=== PATIENT | female | born 2005 | race Two or more races ===

== ENCOUNTER 2024-12-22 15:15 | Emergency (ER) | payer MEDICAID, SELFPAY ==
[2024-12-22 15:22] VITALS: BP 117/79; PULSE 63; RESP 18; TEMP 37.6; O2SAT 97; BMI 21.9
--- NOTE | 2024-12-22 15:38 | EDNOTE_ITS ---
<Statement entered by Bryanna Kwong MD - 12/23/24 15:24> As co-signing physician, I was present and available for consult prn. I concur with the plan and care as documented by the midlevel provider. ED General RME/HPI General Chief complaint: General Adult/Misc Complain Stated complaint: left lower lip drooping per pt. Time Seen by Provider: 12/22/24 15:33 Arrival date/time: 12/22/24 15:15 CC: Tugging or pulling sensation in the left side of the cheek just lateral to the mouth HPI onset 3 days ago patient is concerned because this is the symptoms the patient had 1 year ago when she overdosed on antidepressants and pain medication with alcohol. Patient denies overdosing on anything she is taking her antidepressants as prescribed, denies alcohol smoking or street drugs. She is awake alert and oriented last menstrual cycle was 30 days ago. Patient has no other complaints including memory loss weakness in the left side nausea vomiting or diarrhea. Related Data Home Medications ?Medication ?Instructions ?Recorded ?Confirmed escitalopram oxalate 20 mg tablet 20 mg PO QDAY 09/19/23 (Lexapro) Allergies Allergy/AdvReac Type Severity Reaction Status Date / Time No Known Allergies Allergy Verified 12/22/24 15:20 Review of Systems Review of Systems Narrative Review of Systems: GEN: No fever, no chills, no weight loss EYES: No discharge, no visual changes, no pain HEENT: No ear pain, no congestion, no sore throat PULM: No shortness of breath, no cough, no congestion CV: No chest pain, no dyspnea on exertion, no palpitations GI: No nausea, no vomiting, no diarrhea, no pain, no constipation : No frequency, no urgency, no dysuria MUSC/SKEL: No joint pain, no back pain SKIN: No rash PSYCH: No hallucinations, no depression HEME/LYMPH: No easy bleeding or bruising tendencies NEURO: No weakness, no headache ED Exam Narrative Physical exam: [General: Flat affect not in any acute distress Head normocephalic HEENT: Eyes pupils are PERRLA EOMs are intact mouth pink moist membranes uvula is midline, grin is symmetrical, puffing of both cheeks without air loss without any complication no ptosis. Nose no rhinorrhea. Facial sensation intact. All other subsystems of HEENT within acceptable limits Neck is supple nontender Chest equal chest rise nontender to palpation Respiratory: Clear to auscultation no wheezes crackles or rubs CV: Rate rhythm is regular no murmurs rubs or clicks Abdomen is soft nontender no masses positive bowel sounds all 4 quadrants Back: No CVA tenderness no spinous process tenderness from cervical spine thoracic and lumbar spine Skin: Intact no petechiae rash induration ulceration or crepitus Extremities: Moving all extremity against resistance cap refill less than 2 seconds neurosensory intact Neuro: Awake alert oriented x3 Glascow coma 15 no focal deficits] cranial nerves II through XII are grossly intact. Course Quality Measures none Orders Category Date Time Status Alcohol, Urine Stat Lab 12/22/24 15:48 Completed Drug Screen,Urine Stat Lab 12/22/24 15:48 Completed HCG Qualitative,Urine Stat Lab 12/22/24 15:48 Results Urinalysis, C/S if Indicated Stat Lab 12/22/24 15:48 Results Vital Signs Vital signs: Vital Signs Temperature 99.6 F 12/22/24 15:22 Pulse Rate 63 12/22/24 15:22 Respiratory Rate 18 12/22/24 15:22 Blood Pressure 117/79 12/22/24 15:22 Pulse Oximetry (%) 97 12/22/24 15:22 Oxygen Delivery Method Room Air 12/22/24 15:22 Discharge Plan Plan Patient Disposition: HOME (Self Care) Patient condition on transfer: Stable Prescriptions/Referrals Prescriptions/Med Rec: No Action escitalopram oxalate [Lexapro] 20 mg Tablet 20 mg PO QDAY Referrals: Wilder Taylor MD [Primary Care Provider] - In 1 week Problem List Clinical Impression: Facial paresthesia Patient/Caregiver Discharge Instructions Other Activity Instructions:: Follow-up with your primary care provider if there is a worsening of symptoms return the emergency room medially for further evaluation Education Materials: ED Paraesthesias Print Language: Hungarian Stand Alone Forms: Mini Award Info., Patient Portal Info Letter PA/CONSUMER RELATIONS COMPLAINT CLERK Supervising Physician PA/CONSUMER RELATIONS COMPLAINT CLERK Supervising Physician: Duane Noble ENP [facility] Clinical Information Provided by patient Medical Records Reviewed [facility] Meds/Rx Considered, not Ordered None Labs/Rad/Tests considered, not Ordered None EKG EKG not done Lab Interpretation Lab(s) interpretation(s): Urine is negative UDS is negative Urine is negative Imaging Imaging interpretation: none Diagnosis Differential diagnosis: Somatization Caceres's palsy Alvarez's paralysis overdose
[2024-12-22 16:18] LABS: Collection Type, Urine Clean Catch
[2024-12-22 16:47] LABS: Alcohol, Urine Negative (Negative); Amphetamine/Methamp Scrn,U Negative (Negative); Barbiturate Screen,Urine Negative (Negative); Benzodiazepines Screen,Urine Negative (Negative); Benzoylecgonine Screen, Ur Negative (Negative); Fentanyl Screen,Urine Negative (Negative); Opiate Screen,Urine Negative (Negative); THC Screen,Urine Negative (Negative)
[2024-12-22 16:58] LABS: HCG Qualitative,Urine Negative
[2024-12-22 17:00] LABS: Bacteria,Urine Rare; Bilirubin,Urine Negative (Negative); Blood,Urine 2+ (Negative); Clarity,Urine Clear (Clear/Hazy); Color,Urine Yellow (Lt Yel-Yel); Culture Indicated,Urine Not Indicated; Glucose, Urine Negative (Negative); Ketones,Urine Negative (Negative); Leukocyte Esterase,Urine Positive (Negative); Nitrite,Urine Negative (Negative); PH,Urine 6.5 (5.0-7.0); Protein,Urine Negative (Neg - Trace); RBC,Urine 6 /hpf (0-3); Specific Gravity,Urine 1.012 (1.001-1.035); Squamous Epithelial Cell,Urine 4 /hpf (0-5); Urobilinogen,Urine Negative mg/dL (0.0-1.0); WBC,Urine 8 /hpf (0-5)
== END 2024-12-22 17:07 | disposition home or self-care (01) ==
PROVIDERS: Registered Nurse General Practice; Emergency Provider Emergency Medicine; PCP Family Medicine
DX: R20.2 Paresthesia of skin (principal)
CPT/HCPCS: 80307; 80320; 81001; 81025; 99283; G0480